=== PATIENT | male | born 1985 | race Caucasian/White ===

== ENCOUNTER 2022-01-10 12:52 | Emergency (ER) | payer SELFPAY ==
[~2022-01-10] VITALS: Ht 180.3 cm; Wt 87.0 kg
[2022-01-10 12:55] VITALS: BP 127/76
== END 2022-01-10 14:33 | disposition left against medical advice (07) ==
LOC: EMS 12:54
DX: Z53.21 Procedure and treatment not carried out due to patient leaving prior to being seen by health care provider (principal)